=== PATIENT | male | born 1990 | race Caucasian/White ===

== ENCOUNTER 2024-06-25 08:00 | Emergency (ER) | payer OTHER ==
[2024-06-25 09:16] LABS: BASOPHILS PERCENT AUTO 0.7 % (0.0-1.0); EOSINOPHILS ABSOLUTE AUTO 0.1 K/mm3 (0.0-0.4); EOSINOPHILS PERCENT AUTO 1.9 % (0.0-6.0); HEMATOCRIT 47.8 % (42.0-52.0); HEMOGLOBIN 16.8 gm/dl (14.0-18.0); IMMATURE GRAN ABSOLUTE AUTO 0.01 K/mm3 (0.00-0.05); IMMATURE GRAN PERCENT AUTO 0.2 % (0.0-0.4); LYMPHOCYTES ABSOLUTE AUTO 1.5 K/mm3 (1.0-4.8); MEAN CORPUSCULAR HEMOGLOBIN 29.3 pg (28.0-32.0); MEAN CORPUSCULAR HGB CONC 35.1 g/dl (32.0-36.0); MEAN CORPUSCULAR VOLUME 83.3 fl (83.0-99.0); MEAN PLATELET VOLUME 10.3 fl (9.4-12.4); MONOCYTES ABSOLUTE AUTO 0.4 K/mm3 (0.0-0.8); NEUTROPHILS ABSOLUTE AUTO 3.7 K/mm3 (1.8-7.7); NEUTROPHILS PERCENT AUTO 64.2 % (41.0-71.0); PLATELET COUNT,PLT 222 K/mm3 (150-400); RED BLOOD CELL COUNT 5.74 M/mm3 (4.52-5.90); WHITE BLOOD CELL COUNT,WBC 5.72 K/mm3 (3.9-11.3)
[2024-06-25 09:39] LABS: A/G RATIO 1.5 (1-2); ALBUMIN 4.5 g/dl (3.4-5.0); BILIRUBIN TOTAL 0.8 mg/dL (0.2-1.0); BUN/CREATININE RATIO 15.5 (14-18); CALCIUM 9.3 mg/dL (8.5-10.1); CREATININE 1.1 mg/dL (0.7-1.3); EST CRCL DRUG DOSING (CG) 102.88 mL/min; PROTEIN TOTAL,TP 7.6 g/dl (6.4-8.2)
== END 2024-06-25 11:48 | disposition home or self-care (01) ==
LOC: JD.ED 08:00
DX: R20.2 Paresthesia of skin (principal); Z88.8 Allergy status to other drugs, medicaments and biological substances
CPT/HCPCS: 36415; 80053; 83735; 85025; 93005; 99284